=== PATIENT | male | born 1955 | race African-American/Black ===

== ENCOUNTER → 2020-08-23 10:44 | Outpatient (CLI) | payer MEDICARE, SELFPAY | PROVIDERS: Visit Provider Urology | DX: N40.2 Nodular prostate without lower urinary tract symptoms (principal) | CPT/HCPCS: 87070; 87077; 87186; 87205 ==

== ENCOUNTER → 2020-09-06 10:05 | Outpatient (CLI) | payer MEDICARE, SELFPAY ==
[2020-09-08 05:53] LABS: Prostate Specific Ag 10.5 ng/mL (0.0-4.0)
== END ==
PROVIDERS: Visit Provider Urology
DX: R97.20 Elevated prostate specific antigen [PSA] (principal)
CPT/HCPCS: 36415; 84153; 84154

== ENCOUNTER → 2020-10-11 11:10 | Outpatient (CLI) | payer MEDICARE, SELFPAY ==
[2020-10-12 11:19] LABS: PSA, Free 0.51 ng/mL; Prostate Specific Ag 6.3 ng/mL (0.0-4.0)
== END ==
PROVIDERS: Visit Provider Urology
DX: R97.20 Elevated prostate specific antigen [PSA] (principal)
CPT/HCPCS: 36415; 84153; 84154

== ENCOUNTER → 2020-11-08 10:17 | Outpatient (CLI) | payer MEDICARE, SELFPAY ==
[2020-11-09 12:11] LABS: PSA, Free 0.54 ng/mL; Prostate Specific Ag 6.2 ng/mL (0.0-4.0)
== END ==
PROVIDERS: Visit Provider Urology
DX: R97.20 Elevated prostate specific antigen [PSA] (principal)
CPT/HCPCS: 36415; 84153; 84154

== ENCOUNTER → 2020-11-25 10:36 | Outpatient (CLI) | payer MEDICARE, SELFPAY ==
[2020-11-25 10:39] LABS: MANUAL DIFFERENTIAL MANUAL DIFFERENTIAL (MANUAL DIFF)
[2020-11-25 11:05] LABS: Basophils % 0.6 % (0.1-2.0); Eosinophils # 0.2 K/mm3 (0.0-0.4); Eosinophils % 2.2 % (0.1-12.0); Hematocrit 43.3 % (42.0-52.0); Hemoglobin 14.8 g/dL (14.1-18.0); Lymphocytes # 2.9 K/mm3 (0.7-4.5); Lymphocytes % 44.2 % (10-50); Mean Corpuscular HGB Conc 34.2 g/dL (31.8-35.4); Mean Corpuscular Hemoglobin 29.5 pg (27.0-31.2); Mean Corpuscular Volume 86.2 fl (80-94); Mean Platelet Volume 8.1 fl (7.4-10.4); Monocytes # 0.4 K/mm3 (0.1-1.0); Monocytes % 5.6 % (1.7-9.3); Neutrophils # 3.1 K/mm3 (1.8-7.8); Neutrophils % 47.5 % (37.0-80.0); Platelet Count 168 K/mm3 (142-424); Red Blood Count 5.03 M/mm3 (4.60-6.20); White Blood Count 6.6 K/mm3 (4.8-10.8)
[2020-11-25 11:52] LABS: Anion Gap 14.7 mEq/L (5-15); Blood Urea Nitrogen 12 mg/dl (9-20); Calcium 9.4 mg/dl (8.4-10.2); Carbon Dioxide 27 mmol/L (22.0-30.0); Chloride 107 mmol/L (98-107); Estimated Glomerular Filt Rate 61 ml/min (>60); GFR (African American) 74 ML/MIN (>60); Glucose 100 mg/dl (74-100); Potassium 4.7 mmoL/L (3.5-5.1); Sodium 144 mmol/L (136-145)
[2020-11-25 12:57] LABS: Eosinophils % 4 % (0-3); Lymphocytes % 51 % (10-50); Monocytes % 6 % (2-9); Neutrophils % 37 % (42-76); Platelet Estimate Normal; RBC Morphology Normal; Total Cells Counted 100
== END ==
PROVIDERS: Visit Provider Urology
DX: R97.20 Elevated prostate specific antigen [PSA] (principal); Z01.812 Encounter for preprocedural laboratory examination; Z20.822 Contact with and (suspected) exposure to COVID-19
CPT/HCPCS: 36415; 80048; 85007; 85014; 85018; 85048; 85049; U0003

== ENCOUNTER 2020-11-28 11:52 | Day surgery (SDC) | payer MEDICARE, SELFPAY ==
[2020-11-28 12:24] VITALS: BP 150/104; PULSE 70; RESP 16; TEMP 36.6; O2SAT 97; BMI 24.4
--- NOTE | 2020-11-28 13:50 | P.PN_ITS ---
[facility] Anesthesia Checklist - Structural Data Admitted From: Home Planned Operative Procedure/s: prostate bx Consent for Planned Operative Procedure(s) Verified: Yes - Additional verifications Anesthesia Reactions: No Hx Blood Transfusions: No Blood Transfusion Reaction: No - Airway Assessment C-Spine Mobility Assessed: Yes TMJ Mobility Assessed: Yes Dentition: Good Dentition - Neurological Assessment Level of Consciousness: Awake, Alert, Appropriate - Anesthesia Plan Anesthesia Risk discussed: Yes Anesthesia Plan: Verified ASA Class: II Anesthesia Type: MAC [facility] History I have reviewed the patient's past medical history: Yes Medical History: Reports:: Hyperlipidemia Denies:: Cancer, Diabetes Mellitus Type 1, Diabetes Mellitus Type 2, Internal Pacemaker, MRSA, Seizures *Have you ever received a pneumonia vaccine?: No *Have you received a flu vaccine this season?: No Other Medical History: Denies: Blood Transfusion Reaction Anesthesia experience/problems:: none Other Surgeries: Yes: No Previous Surgery, Colonoscopy. No: Pacemaker Amputation: No Fractures: No - *Social History Smoking Status: Never smoker Alcohol Intake: never Substance Use Type: denies use *Occupational Status:: retired Housing: house Household Members: friend(s) *Travel in the last 8 weeks: None Family Hx:: Hypertension, Stroke
[2020-11-28 14:34] VITALS: BP 122/85; PULSE 71; RESP 12; TEMP 36.6; O2SAT 95
[2020-11-28 14:44] VITALS: BP 125/82; PULSE 65; RESP 16; O2SAT 96
[2020-11-28 14:54] VITALS: BP 126/79; PULSE 65; RESP 16; O2SAT 96
[2020-11-28 15:04] VITALS: BP 122/77; PULSE 63; RESP 16; TEMP 36.6; O2SAT 99
--- NOTE | 2020-11-28 15:50 | HMH.OPNOTE ---
Date of procedure: 11/28/20 Pre-op Diagnosis:: Elevated PSA Post-op Diagnosis:: Elevated PSA Procedure performed:: Transrectal ultrasound and prostate biopsy Surgeon:: Sameer Guerra MD GENERAL OPHTHALMOLOGIST:: Evgeny Fox Anesthesia: MAC Estimated blood loss (mL): 0 Clinical Note:: Patient is a 65-year-old white male with history of elevated PSA. He has been treated for prostatitis for several months now with minimal improvement in his PSA. We have decided to proceed with prostate biopsy to rule out prostate cancer. Operative findings:: Prostate was measured at 36.7 cm?. There was some hypoechoic areas in the left central and peripheral zone. Operative note:: Patient taken to the operating suite after informed consent was obtained. He was placed on the operating room table and monitored anesthesia care administered. He was then placed into the left lateral decubitus position. He had taken preoperative oral antibiotics at home and also did an enema this morning. The transrectal ultrasound probe was placed into the rectum after adequate anesthesia. The prostate was easily visualized and was measured at 36.7 cm?. There was some hypoechoic areas in the left central and peripheral zone. No calcifications were noted. Local anesthetic was placed into each neurovascular bundles and 12 biopsies then taken in a systematic fashion. The probe was removed. The patient tolerated the procedure well no complications. Condition: stable Disposition: same day Specimens:: Prostate biopsies x12 Complications:: None
== END 2020-11-28 15:05 | disposition home or self-care (01) ==
LOC: OR 11:54
PROVIDERS: PCP Family Medicine; Visit Provider Urology
DX: C61 Malignant neoplasm of prostate (principal); E78.5 Hyperlipidemia, unspecified; Z82.3 Family history of stroke; Z82.49 Family history of ischemic heart disease and other diseases of the circulatory system; Z79.82 Long term (current) use of aspirin; Z79.899 Other long term (current) drug therapy
CPT/HCPCS: 55700; 76942; 88305

== ENCOUNTER → 2021-01-06 11:20 | Outpatient (CLI) | payer MEDICARE, SELFPAY | PROVIDERS: Visit Provider Urology | DX: C61 Malignant neoplasm of prostate (principal); Z01.812 Encounter for preprocedural laboratory examination; Z11.52 Encounter for screening for COVID-19 | CPT/HCPCS: C9803; U0003; U0005 ==

== ENCOUNTER 2021-01-09 07:56 | Day surgery (SDC) | payer MEDICARE, SELFPAY ==
[2021-01-09 08:21] VITALS: BP 156/98; PULSE 64; RESP 18; TEMP 36.4; O2SAT 99; BMI 24.0
--- NOTE | 2021-01-09 09:26 | HMH.ANESCL ---
[facility] Anesthesia Checklist - Patient Identification Patient Identification: Arm Band, Verbal (Name & ) - Structural Data Admitted From: Home Planned Operative Procedure/s: Pristate Seed Placement Consent for Planned Operative Procedure(s) Verified: Yes Verified Documents: Surgical Consent - NPO Status Verified Time NPO: 00:00 - Chart Verification Results Verified: None - Additional verifications Anesthesia Reactions: No Hx Blood Transfusions: No Blood Transfusion Reaction: No - Cardiovascular Assessment Heart Sounds: S1 & S2 Pulse Rhythm: Regular - Airway Assessment C-Spine Mobility Assessed: Yes TMJ Mobility Assessed: Yes Dentition: Good Dentition - Neurological Assessment Level of Consciousness: Awake, Alert, Appropriate - Anesthesia Plan Anesthesia Risk discussed: Yes ASA Class: II Anesthesia Type: MAC [facility] History Medical History: Reports:: Cancer (prostate), Hyperlipidemia Denies:: Diabetes Mellitus Type 1, Diabetes Mellitus Type 2, Internal Pacemaker, MRSA, Seizures *Have you ever received a pneumonia vaccine?: No *Have you received a flu vaccine this season?: No Other Medical History: Denies: Blood Transfusion Reaction Anesthesia experience/problems:: no issues Other Surgeries: Yes: No Previous Surgery, Colonoscopy. No: Pacemaker Amputation: No Fractures: No - *Social History Last grade of school completed: Advanced degree Smoking Status: Never smoker Alcohol Intake: never Substance Use Type: denies use *Occupational Status:: employed Housing: house Household Members: friend(s) *Travel in the last 8 weeks: None Family Hx:: Hypertension
[2021-01-09 09:54] VITALS: BP 95/71; PULSE 72; RESP 12; TEMP 36.9; O2SAT 96
[2021-01-09 10:04] VITALS: BP 102/69; PULSE 70; RESP 12; O2SAT 96
[2021-01-09 10:14] VITALS: BP 124/87; PULSE 69; RESP 16; O2SAT 94
[2021-01-09 10:24] VITALS: BP 124/89; PULSE 62; RESP 16; TEMP 36.9; O2SAT 96
--- NOTE | 2021-01-09 12:27 | P.OP_ITS ---
Date of procedure: 01/09/21 Pre-op Diagnosis:: Prostate cancer Post-op Diagnosis:: Prostate cancer Procedure performed:: Placement of gold fiducials utilizing transrectal ultrasound guidance Surgeon:: Sameer Guerra MD [employer] INVESTIGATOR:: Other (john quiñones) Anesthesia: MAC Estimated blood loss (mL): 0 Clinical Note:: 65-year-old black male with recently diagnosed prostate cancer. He has low- grade low-volume disease and has opted for CyberKnife radiotherapy of the prostate. He presents for placement of gold fiducial markers to facilitate the CyberKnife treatment. Operative findings:: Prostate easily visualized and markers were placed into their appropriate position. Operative note:: Patient taken to the operating suite after informed consent was obtained. He was placed on the operating table in the left lateral decubitus position after monitored anesthesia care had been administered. He had performed preoperative oral antibiotics and enema. The transrectal ultrasound probe was placed into the rectum and the prostate visualized easily. Local anesthetic was placed into each neurovascular bundle and 4 gold markers were then placed. One at the right apex, 1 at the left apex, 1 at the right base laterally and one at the left base laterally. There was good visualization of the seeds after placement. The probe removed and the patient tolerated the procedure well. Condition: stable Disposition: same day Specimens:: None Complications:: None
== END 2021-01-09 10:26 | disposition home or self-care (01) ==
LOC: OR 07:58
PROVIDERS: PCP Family Medicine; Visit Provider Urology
DX: C61 Malignant neoplasm of prostate (principal); E78.5 Hyperlipidemia, unspecified; Z82.49 Family history of ischemic heart disease and other diseases of the circulatory system
CPT/HCPCS: 55876; 76942

== ENCOUNTER → 2021-05-11 12:09 | Outpatient (CLI) | payer MEDICARE, SELFPAY ==
[2021-05-11 13:56] LABS: Prostate Specific Ag, Diagnost 1.69 ng/ml (0.0-4.0)
== END ==
PROVIDERS: PCP Family Medicine; Visit Provider Urology
DX: C61 Malignant neoplasm of prostate (principal)
CPT/HCPCS: 36415; 84153

== ENCOUNTER → 2021-09-12 10:37 | Outpatient (CLI) | payer MEDICARE, SELFPAY ==
[2021-09-12 12:27] LABS: Prostate Specific Ag, Diagnost 3.01 ng/ml (0.0-4.0)
== END ==
PROVIDERS: Visit Provider Urology
DX: C61 Malignant neoplasm of prostate (principal)
CPT/HCPCS: 36415; 84153